=== PATIENT | male | born 2000 | race Two or more races ===

== ENCOUNTER 2019-06-29 17:01 | Emergency (ER) | payer SELFPAY ==
[~2019-06-29] VITALS: Ht 177.8 cm; Wt 145.1 kg
--- OUTSIDE RECORDS SUMMARY | 2019-06-29 17:04 | XMS REPORT ---
[facility] Address Unknown Phone Unavailable Care Team Providers Care Patternmaker Helper Name Role Phone Unavailable Unavailable Payers Payer Name Policy Type Policy Number Effective Date Expiration Date Problems This patient has no known problems. Allergies, Adverse Reactions, Alerts Allergy Name Allergy Type Status Severity Reaction(s) Onset Date Inactive Date Treating Clinician Comments Penicillins DA Active [place] 2017-07-07 00:00:00 Medications This patient has no known medications. Results Test Description Test Time Test Comments Text Results Atomic Results Result Comments STREPTOCOCCUS PCR SCREEN 2019-06-12 06:32:00 STREPTOCOCCUS DYSGALACTIAE (test code=STREPGC) NEGATIVE FOR G/C NEGATIVE STREPA MOLECULAR (test code=STREPAMOL) NEGATIVE FOR GRP A NEGATIVE - XR CHEST 2 [id number] 20:27:00 FAX: ELDON TELLEZ NP [place]: B St: REG Name: PIO SHANKS II [facility] : [birth year] Age/S: 18/M [address] [facility] Unit #: [id number] Loc: [place] [address] Phys: ELDON TELLEZ NP Acct: [id number] Dis Date: Status: REG ER PHONE #: [phone] Exam Date: 06/11/20192013 FAX #: [phone] Reason: Cough, congestion, fever EXAMS: CPT CODE: [id number] XR CHEST 2 V 46039 HISTORY: Cough and congestion. COMPARISON: None available. Location: TH. AP and lateral view of the chest: No acute infiltrates, effusion or congestion. Cardiac and the mediastinal silhouette are normal. IMPRESSION: No acute infiltrates, effusion or congestion. at 2026 Reported and signed by: Keshawn Acevedo M.D. CC: ELDON TELLEZ NP Technologist: KEVON TERRY Trnscrd Date/Time/By: 06/11/2019 (2026) : By: [email or web address] Orig Print D/T: S: 06/11/2019 (2030) PAGE 1 Signed Report
[2019-06-29 17:56] LABS: STREPTOCOCCUS GRP A ANTIGEN NEGATIVE (NEGATIVE)
[2019-06-29 18:02] LABS: INFLUENZAE A&B ANTIGEN (RAPID) NEGATIVE (NEGATIVE)
[2019-06-29 18:05] VITALS: BP 128/77
== END 2019-06-29 18:09 | disposition home or self-care (01) ==
LOC: ER 17:01
DX: R50.9 Fever, unspecified (principal); R05 Cough; B34.9 Viral infection, unspecified
CPT/HCPCS: 83518; 87070; 87400; 99282

== ENCOUNTER 2020-01-13 14:33 | Emergency (ER) | payer SELFPAY ==
[~2020-01-13] VITALS: Ht 177.8 cm; Wt 145.1 kg
--- OUTSIDE RECORDS SUMMARY | 2020-01-13 14:39 | XMS REPORT | Continuity of Care Document ---
Author Author [facility] t Organization [facility] Address [address] [place] [address] Phone Unavailable Care Team Providers Care Unit Trust Manager Name Role Phone NO, PCP PCP Unavailable Payers Payer Name Policy Type Policy Number Effective Date Expiration Date S ource Problems This patient has no known problems. Allergies, Adverse Reactions, Alerts Allergy Name Allergy Type Status Severity Reaction(s) Onset Date Inacti ve Date Treating Clinician Comments Source Penicillin Allergy to Substance Active 2019-06-29 00:00:00 [facility] Penicillins DA Active [place] 2017-07-07 00:00:00 [facility] Medications This patient has no known medications. Procedures This patient has no known procedures. Encounters Start Date/Time End Date/Time [facility] ID Source 2019-06-29 17:01:00 2019-06-29 18:09:00 Departed Emergency Room [facility] [id number] [facility] Results Test Description Test Time Test Comments Results Result Comments Source Influenza Virus Types A,B Antigen 2019-06-29 18:02:00 Test Item Influenza Virus Types A,B Antigen (test code = 88500-9) NEGATIVE [facility]IVE [facility] St[facility] [id number] 17:56:00* Test Item Value Reference Range Interpretation Comments Group A Streptococcus Screen (test code = 53059-3) NEGATIVE [facility]G [facility] [id number] 06:32:00* Test Item Value Reference Range Interpretation Comments STREPTOCOCCUS DYSGALACTIAE (test code = STREPGC) NEGATIVE FOR G/C N EGATIVE STREPA MOLECULAR (test code = STREPAMOL) NEGATIVE FOR GRP A NEGATIV E - XR CHEST 2 [id number] 20:27:00 FAX: ELDON TELLEZ NP [place]: St: REG Name: PIO SHANKS [facility] : [birth year] Age/S: 18/M [address] [facility] Unit #: [id number] Loc: [place] [address] Phys: ELDON TELLEZ NP Acct: [id number] Dis Date: Status: REG ER PHONE #: [phone] Exam Date: 06/11/20192013 FAX #: [phone] Reason: Cough, congestion, fever EXAMS: CPT CODE: [id number] XR CHEST 2 V 25424 HISTORY: Cough and congestion. COMPARISON: None available. Location: TH. AP and lateral view of the chest: No acute infiltrates, effusion or congestion. Cardiac and the mediastinal silhouette are normal. IMPRESSION: No acute infiltrates, effusion or congestion. at 2026 Reported and signed by: Keshawn Acevedo M.D. CC: ELDON TELLEZ NP Technologist: KEVON TERRY Trnsupriya Date/Time/By: 06/11/2019 (2026) : By: [email or web address] Orig Print D/T: S: 06/11/2019 (2030) PAGE 1 Signed Report
--- NOTE | 2020-01-13 19:18 | Emergency Department Note ---
History of Present Illnes History of Present Illness Chief Complaint: Skin Rash or Abscess History of Present Illness This is a 19 year old Other male HERE FOR A PAINFUL LUMP ON BACK OF NECK, HAS HAD IT OFF AND ON FOR OVER 2 YRS. . Historian: Patient Arrival Mode: Car Onset (how long ago): year(s) (2) Location: posterior base of neck Quality: swollen nodule Radiation: non-radiation Severity: mild Onset quality: gradual Duration (how long): month(s) (24) Timing of current episode: constant Progression: waxing and waning Chronicity: recurrent Context: recent illness, recent surgery Relieving factors: none Exacerbating factors: none Associated symptoms: denies other symptoms Treatments prior to arrival: none Past Medical/Family History Physician Review I have reviewed the patient's past medical and family history. Any updates have been documented here. Past Medical History Recent Fever: No Clinical Suspicion of Infectio: No New/Unexplained Change in Ment: No Past Medical History: None Other Medical History: spinal meningitis Past Surgical History: None Social History Smoking Cessation: Never Smoker Alcohol Use: Occasional Any Illegal Drug Use: No Other Last Tetanus: utd Review of Systems Review of Systems Constitutional: no symptoms EENTM: no symptoms Cardiovascular: no symptoms Respiratory: no symptoms Gastrointestinal: no symptoms Genitourinary: no symptoms Musculoskeletal: as per HPI Neurological: no symptoms Psychological: no symptoms Endocrine: no symptoms Hematological/Lymphatic: no symptoms Review of other systems All other systems reviewed and negative. Physical Exam Related Data Allergies: Coded Allergies: Penicillins (Verified Allergy, Unknown, 06/29/19) Triage Vital Signs Vital Signs Date Time Temp Pulse Resp B/P (MAP) Pulse Ox O2 Delivery O2 Flow Rate FiO2 01/13/20 14:55 99.0 88 16 156/103 97 Vital signs reviewed: Yes Physical Exam CONSTITUTIONAL Constitutional: well-developed, well-nourished HENT HENT: normocephalic, atraumatic, oropharynx clear/moist, nose normal HENT L/R: left ext ear normal, right ext ear normal EYES Eyes: PERRL, conjunctivae normal NECK Neck: ROM normal, other (small 1.5 cm cyst to posterior neck, no redness, no sign of infection, mildly tender to palpation) PULMONARY Pulmonary: effort normal, breath sounds normal CARDIOVASCULAR Cardiovascular: regular rhythm, heart sounds normal, capillary refill normal, normal rate GASTROINTESTINAL Abdominal: soft, nontender, bowel sounds normal GENITOURINARY Genitourinary: exam deferred SKIN Skin: warm, dry MUSCULOSKELETAL Musculoskeletal: ROM normal NEUROLOGICAL Neurological: alert, oriented x 3, no gross motor or sensory deficits PSYCHOLOGICAL Psychological: mood/affect normal, judgement normal Critical Care Time Subsequent provider I assumed direction of critical care for this patient from another provider of my specialty. Assessment & Plan Assessment & Plan Final Impression: (1) EPIDERMAL CYST Assessment & Plan PT WITH CYST TO BACK OF NECK FOR 2 YEARS, NO SIGN OF INFECTION INSTRUCTED PT HE WILL NEED TO FOLLOW UP WITH A SURGEON TO HAVE CYST REMOVED, PT REFERRED TO DR Abbi CARRERO NO PRESCRIPTIONS Depart Disposition: HOME, SELF-CARE Last Vital Signs Date Time Temp Pulse Resp B/P (MAP) Pulse Ox O2 Delivery O2 Flow Rate FiO2 01/13/20 14:55 99.0 88 16 156/103 97 AG KELLY MD Jan 13, 2020 19:18
== END 2020-01-13 19:14 | disposition home or self-care (01) ==
LOC: ER 14:37
DX: L72.8 Other follicular cysts of the skin and subcutaneous tissue (principal)
CPT/HCPCS: 99282